=== PATIENT | female | born 1985 ===

== ENCOUNTER 2021-02-08 14:25 | Outpatient (CLI) | payer OTHER | END 2021-02-08 17:30 | disposition home or self-care (01) | LOC: PRENATAL 14:25 | PROVIDERS: ATTEND Obstetrics & Gynecology Maternal & Fetal Medicine | DX: O35.0XX2 Maternal care for (suspected) central nervous system malformation in fetus, fetus 2 (principal); O35.3XX2 Maternal care for (suspected) damage to fetus from viral disease in mother, fetus 2; O98.512 Other viral diseases complicating pregnancy, second trimester; O28.1 Abnormal biochemical finding on antenatal screening of mother; O30.92 Multiple gestation, unspecified, second trimester; Z36.89 Encounter for other specified antenatal screening; Z3A.22 22 weeks gestation of pregnancy ==